=== PATIENT | male | born 1950 | race Two or more races ===

== ENCOUNTER 2019-08-22 05:48 | Day surgery (SDC) | payer MEDICARE, BC ==
[2019-08-22] VITALS (8 sets, daily range): BP systolic 114–127; BP diastolic 77–98
[~2019-08-22] VITALS: Ht 167.6 cm; Wt 62.6 kg
[~2019-08-22 05:48] MED LIST: ASPIR 8181 MG ORAL; ATIVAN1 MG ORAL; AZILECT1 MG PO; CABERGOLINE0.5 MG PO; FLOMAX0.4 MG ORAL; HYDROCHLOROTHIA25 MG ORAL; LIVALO1 MG PO; METFORMIN HCL500 M4 ORAL; VASCEPA1 GM PO; ZETIA10 MG ORAL; [UNRECOGNIZED DRUG - OTHER]
[2019-08-22] MEDS ORDERED: LR 1000ml 1,000 ML IVLG SCH (06:00)
[2019-08-22] MEDS ORDERED: Lidocaine 1% MPF 10mg/ml 5ml ONE (07:00)
[2019-08-22] MEDS ORDERED: LR 1000ml ONE (07:00)
--- NOTE | 2019-08-22 07:05 | Short Stay Surgery H&P ---
History of Present Illness History of Present Illness Chief Complaint see H&P attached HPI Daniel Mcnair is a 69 year old male who was admitted on for Screening Colonoscopy Patient History Allergies: Coded Allergies: No Known Allergies (Unverified , 08/20/19) Medication History Scheduled Aspirin* (Aspir 81*), 81 MG ORAL DAILY, (Reported) Cabergoline (Cabergoline), 0.5 MG PO QWEEK, (Reported) Ezetimibe (Zetia*), 10 MG ORAL BEDTIME, (Reported) Hydrochlorothiazide* (Hydrochlorothiazide*), 25 MG ORAL DAILY, (Reported) Icosapent Ethyl (Vascepa), 1 GM PO QID, (Reported) Lorazepam* (Ativan*), 1 MG ORAL BEDTIME, (Reported) Metformin Hcl (Metformin Hcl Er), 500 MG ORAL DAILY, (Reported) Pitavastatin Calcium (Livalo), 1 MG PO DAILY, (Reported) Rasagiline Mesylate (Azilect), 1 MG PO DAILY, (Reported) Tamsulosin HCl (Flomax), 0.4 MG ORAL HS, (Reported) [Vit C complex ], 500 MG DAILY, (Reported) Physical Exam Vital Signs Last Vital Signs Date Time Temp Pulse Resp B/P (MAP) Pulse Ox O2 Delivery O2 Flow Rate FiO2 08/22/19 06:21 Room Air 08/22/19 06:16 97.1 87 18 125/79 96 Plan Attestation Are the patient's medical conditions optimized for surgery? Anthony Kovacs MD Aug 22, 2019 07:05
--- NOTE | 2019-08-22 07:05 | Pre-Procedure Note/Attestation ---
Pre-Procedure Note/Attestation Complete Prior to Procedure Planned Procedure: not applicable Procedure Narrative: colon Indications for Procedure Pre-Operative Diagnosis: screening Attestation I attest that I discussed the nature of the procedure; its benefits; risks and complications; and alternatives (and the risks and benefits of such alternatives ), prior to the procedure, with the patient (or the patient's legal technical support representative). I attest that, if there was a reasonable possibility of needing a blood transfusion, the patient (or the patient's legal technical support representative) was given the [facility] standardized written summary, pursuant to the Abdi Emily Blood Safety Act ([place] Health and Safety Code # 1645, as amended). I attest that I re-evaluated the patient just prior to the surgery and that there has been no change in the patient's H&P, except as documented below: Anthony Kovacs MD Aug 22, 2019 07:05
--- NOTE | 2019-08-22 07:58 | Endoscopy Procedure Note ---
Endoscopy Procedure Note General Indication for Procedure: screening Procedures Performed: colonoscopy Operative Findings/Diagnosis: 8 polyps removed snare saline injection Specimen: yes Pt Tolerated Procedure Well: Yes Estimated Blood Loss: none Anesthesia Anesthesiologist: see report Anesthesia: MAC Medications Medication Given: see anesthesia record Inserted Devices Implant(s) used?: No GI Core Measures 50 yrs or older w/o bx or poly: Not Applicable 10yrs. F/U recommended: Not Applicable If not recommended, why?: Above average risk 18 years or older w/prev. colo: No <3yrs. since last colonoscopy: No Med reason:<3 yrs.: System Reason:<3 yrs.: Last colonoscopy >= to 3yrs: Yes Anthony Kovacs MD Aug 22, 2019 07:58
--- NOTE | 2019-08-22 08:00 | Brief Operative Note ---
Immediate Post Operative Note Operative Note Chief Complaint: colon Pre-op Diagnosis: screening Procedure: colon snare injection Post-op Diagnosis: polyps Surgeon: michelle Anesthesiologist: see report Anesthesia: MAC Specimen: yes Complications: none Condition: stable Fluids: recorded Estimated Blood Loss: none Drains: none Implant(s) used?: Yes Anthony Kovacs MD Aug 22, 2019 08:00
--- NOTE | 2019-08-22 08:01 | Immediate Post-Op Evaluation ---
Immediate Post-Op Evalulation Immediate Post-Op Evalulation Procedure: colonoscopy Date of Evaluation: Aug 22, 2019 Time of Evaluation: 08:01 IV Fluids: 600 Blood Pressure Systolic: 127 Blood Pressure Diastolic: 98 Pulse Rate: 81 Respiratory Rate: 14 O2 Sat by Pulse Oximetry: 100 Temperature (Fahrenheit): 97.5 Nausea: No Vomiting: No Complications none Patient Status: awake, reacts, patent Hydration Status: adequate Drug: none FarnazriKaren jimenez CRNA Aug 22, 2019 08:01
--- NOTE | 2019-08-22 08:02 | Anethesia Preoperative Eval ---
Anesthesia Pre-op PMH/ROS General Date of Evaluation: Aug 22, 2019 Time of Evaluation: 07:00 Anesthesiologist: maura ASA Score: ASA 2 Mallampati Score Class I : Soft palate, uvula, fauces, pillars visible Class II: Soft palate, uvula, fauces visible Class III: Soft palate, base of uvula visible Class IV: Only hard plate visible Mallampati Classification: Class II Surgeon: usman Diagnosis: screen Surgical Procedure: colonoscopy Anesthesia History: none Family History: no anesthesia problems Allergies: Coded Allergies: No Known Allergies (Unverified , 08/20/19) Medications: see eMAR Patient NPO?: Yes NPO Date: Aug 22, 2019 NPO Time: 00:01 Past Medical History Cardiovascular: Reports: HTN; Denies: CAD, ME, valve dz, arrhythmia, other Pulmonary: Denies: asthma, COPD, JUSTEN, other Gastrointestinal/Genitourinary: Denies: GERD, CRI, ESRD, other Neurologic/Psychiatric: Reports: depression/anxiety; Denies: dementia, CVA, TIA, other Endocrine: Denies: DM, hypothyroidism, steroids, other HEENT: Denies: cataract (L), cataract (R), glaucoma, [place]I (L), [place] (R), other Hematology/Immune: Denies: anemia, DVT, bleeding disorder, other PSxH Narrative: none Anesthesia Pre-op Phys. Exam Physician Exam Last Vital Signs Date Time Temp Pulse Resp B/P (MAP) Pulse Ox O2 Delivery O2 Flow Rate FiO2 08/22/19 06:21 Room Air 08/22/19 06:16 97.1 87 18 125/79 96 Constitutional: NAD Neurologic: CN 2-12 intact Cardiovascular: RRR Respiratory: CTA Gastrointestinal: S/NT/ND Airway Exam Mallampati Classification 2 Mallampati Score: Class II MO: full ROM: full Dentures: no upper, no lower Anesthesia Pre-op A/P Studies Pre-op Studies: EKG - sr Risk Assessment & Plan Plan: mac Pre-Antibiotics Drug: none Karen Tyson CRNA Aug 22, 2019 08:02
--- NOTE | 2019-08-22 10:51 | 48 Hour Post Anesthesia Eval ---
Post Anesthesia Evaluation Procedure: colonoscopy Date of Evaluation: Aug 22, 2019 Time of Evaluation: 10:51 Blood Pressure Systolic: 115 0: 79 Pulse Rate: 74 Respiratory Rate: 14 O2 Sat by Pulse Oximetry: 98 Airway: patent Nausea: No Vomiting: No Hydration Status: adequate Cardiopulmonary Status: stable Mental Status/LOC: patient returned to baseline Post-Anesthesia Complications: none Follow-up care needed: N/A Karen Tyson CRNA Aug 22, 2019 10:51
--- NOTE | 2019-08-27 10:30 | Operative Note - Dictated ---
DATE OF OPERATION: 08/22/2019 GASTROENTEROLOGY PROCEDURE REPORT PROCEDURE: Screening colonoscopy. SURGEON: Anthony Kovacs MD ANESTHESIA: Please see the separate anesthesiologist notes for details. PRE-ENDOSCOPIC DIAGNOSIS: Screening colonoscopy. POST-ENDOSCOPIC DIAGNOSES: 1. Polyps found to be in the ascending colon, transverse colon, descending colon, sigmoid colon, and rectum totaling to 8 polyps, all removed as described below. 2. Normal terminal ileum. PROCEDURE IN DETAIL: The procedure its risks, indications, alternatives, and possible complications were explained to the patient and informed consent was obtained. The patient was then sedated and a rectal exam was done. The diagnostic colonoscope was introduced in the rectum and advanced to 5 cm into the terminal ileum. The colonoscope was then gradually withdrawn and mucosa examined carefully. Examination of the colonic mucosa revealed the polyps which are described below. The terminal ileum mucosa was normal for about 5 cm. In the colon, in the proximal ascending colon there was a 1.5 centimeter polyp, which was first injected with saline to raise it and then removed with a hot polypectomy forceps without complications. In the proximal transverse colon there was subcentimeter pedunculated polyp which was removed with a hot snare. Right next to it, there was a diminutive polyp which was removed with the biopsy forceps. These too were sent in the same bottle. In the descending colon, there was a subcentimeter polyp which was first injected with the saline to raise and then removed with a hot snare polypectomy. In the sigmoid colon, there was a diminutive polyp which was removed with biopsy forceps and in the rectum there were 3 diminutive polyps, which was removed with biopsy forceps. The rectal polyps were all sent in the the same cassette. Retroflexed view of the rectum revealed internal hemorrhoids. The colonoscope was removed and the patient was sent to Recovery in good condition. COMPLICATIONS: None. RECOMMENDATIONS: 1. Follow up biopsy results. 2. Outpatient followup. 3. Repeat colonoscopy in 3 years. Thank you for asking me to participate in the care of this patient. Anthony Kovacs M.D. DR: KRISTEN JOB#: [id number] CC: Pat Carmona M.D.; Fax#: [phone]
== END 2019-08-22 08:45 | disposition home or self-care (01) ==
LOC: GAS 05:48
DX: Z12.11 Encounter for screening for malignant neoplasm of colon (principal); K63.5 Polyp of colon; D12.2 Benign neoplasm of ascending colon; D12.3 Benign neoplasm of transverse colon; Z79.82 Long term (current) use of aspirin; Z79.899 Other long term (current) drug therapy; I10 Essential (primary) hypertension; F32.9 Major depressive disorder, single episode, unspecified; F41.9 Anxiety disorder, unspecified
CPT/HCPCS: 45380; 45381; 45384; 45385; 94003; J2704; J7120; 94150